=== PATIENT | female | born 1990 | race Caucasian/White ===

== ENCOUNTER 2018-11-16 10:31 | Inpatient (IN) | payer OTHER ==
[2018-11-17 13:25] LABS: ADD MAN DIFF? NO
[2018-11-17 13:34] LABS: BASOPHILS % 0.3 % (0.0-2.0); EOSINOPHILS # 0.1 10^3/ul (0.0-0.5); EOSINOPHILS % 0.8 % (0.0-7.0); HEMATOCRIT 41.6 % (37.0-47.0); HEMOGLOBIN 14.5 g/dl (12.0-16.0); LYMPHOCYTES # 2.5 10^3/ul (0.8-2.9); LYMPHOCYTES % 27.7 % (15.0-51.0); MEAN CORPUSCULAR HEMOGLOBIN 31.9 pg (29.0-33.0); MEAN CORPUSCULAR HGB CONC 34.9 g/dl (32.0-37.0); MEAN CORPUSCULAR VOLUME 91.6 fl (82.0-101.0); MEAN PLATELET VOLUME 12.9 fl (7.4-10.4); MONOCYTE # 0.5 10^3/ul (0.3-0.9); MONOCYTES % 5.5 % (0.0-11.0); NEUTROPHILS % 65.4 % (39.0-77.0); PLATELET COUNT 142 10^3/UL (140-415); RED BLOOD COUNT 4.54 10^6/ul (4.20-5.40); RED CELL DISTRIBUTION WIDTH 12.2 % (11.5-14.5)
[2018-11-17 13:34] LABS: WHITE BLOOD COUNT 9.2 10^3/ul (4.8-10.8)
[2018-11-17 13:39] LABS: INR 0.89; PROTIME 12.2 Sec (11.9-14.9)
[2018-11-17 13:40] LABS: PARTIAL THROMBOPLASTIN TIME 23.6 Sec (23.0-35.0)
[2018-11-17] MEDS: LACTATED RINGER'S 1,000 ML IV ×3 (13:42→21:17)
[2018-11-17] MEDS ORDERED: IBUPROFEN 600 MG TAB PO (15:00)
[2018-11-17] MEDS ORDERED: LIDOCAINE 1% (MPF) 30 ML INJ INJ (15:00)
[2018-11-17] MEDS ORDERED: BUTORPHANOL 2 MG INJ IV (15:00)
[2018-11-17] MEDS ORDERED: CARBOPROST 250 MCG INJ IM (15:00)
[2018-11-17] MEDS ORDERED: MISOPROSTOL 200 MCG TAB PR (15:00)
[2018-11-17] MEDS ORDERED: METHYLERGONOVINE 0.2 MG INJ IM (15:00)
[2018-11-17] MEDS ORDERED: OXYTOCIN 30 UNITS/LR 500 ML IV (15:00)
[2018-11-17 15:45] LABS: RAPID PLASMA REAGIN NONREACTIVE (NR)
[2018-11-17] MEDS ORDERED: AMPICILLIN 2 GM/NS (PMX) 100 ML (19:26)
[2018-11-17] MEDS: AMPICILLIN 2 GM/NS (PMX) 100 ML IVPB (19:30)
[2018-11-17] MEDS ORDERED: NALOXONE (0.4 MG/ML) INJ IV (20:00)
[2018-11-17] MEDS ORDERED: FENTAnyl 2MCG/ML-ROPIV 0.2% 100 ML BAG EPI (20:00)
[2018-11-17] MEDS ORDERED: DIPHENHYDRAMINE 50 MG INJ IV (20:00)
[2018-11-17] MEDS: ONDANSETRON 4 MG INJ IV (20:23)
[2018-11-17] MEDS: AMPICILLIN 1 GM/NS (PMX) 50 ML IVPB (22:54)
[2018-11-18] MEDS: MINERAL OIL LIGHT 10 ML VIAL TOP (02:39)
[2018-11-18] MEDS: OXYTOCIN 30 UNITS/LR 500 ML IV ×3 (03:05→03:07)
[2018-11-18] MEDS: LACTATED RINGER'S 1,000 ML IV* ×3 (03:07→19:07)
[2018-11-18] MEDS: AMPICILLIN 1 GM/NS (PMX) 50 ML IVPB (03:09)
[2018-11-18] MEDS ORDERED: MAGNESIUM HYDROXIDE 30ML CUP PO (03:30)
[2018-11-18] MEDS ORDERED: OXYTOCIN 30 UNITS/LR 500 ML IV (03:30)
[2018-11-18] MEDS ORDERED: CARBOPROST 250 MCG INJ IM (03:30)
[2018-11-18] MEDS ORDERED: DIBUCAINE 1% 30 GM OINT TOP (03:30)
[2018-11-18] MEDS ORDERED: IBUPROFEN 600 MG TAB PO (03:30)
[2018-11-18] MEDS ORDERED: METHYLERGONOVINE 0.2 MG INJ IM (03:30)
[2018-11-18] MEDS ORDERED: MISOPROSTOL 200 MCG TAB PR (03:30)
[2018-11-18] MEDS ORDERED: ONDANSETRON 4 MG INJ IV (03:30)
[2018-11-18] MEDS ORDERED: ACETAMINOPHEN 325 MG TAB PO ×2 (03:30)
[2018-11-18] MEDS: WITCH HAZEL/GLYCERIN PAD PR (06:52)
[2018-11-18] MEDS: BENZOCAINE 20% 56 ML SPRAY TOP (06:52)
[2018-11-18] MEDS: LANOLIN HPA 1 PKT TOP (20:32)
[2018-11-19] MEDS: LACTATED RINGER'S 1,000 ML IV* ×3 (03:07→21:31)
[2018-11-19] MEDS: LANOLIN HPA 1 PKT TOP (08:06)
[2018-11-19] MEDS: SENNA/DOCUSATE NA (8.6MG/50MG) TAB PO (08:06)
[2018-11-19] MEDS: WITCH HAZEL/GLYCERIN PAD PR (08:06)
[2018-11-19] MEDS: BENZOCAINE 20% 56 ML SPRAY TOP (08:06)
[2018-11-19 08:19] LABS: ADD MAN DIFF? NO
[2018-11-19 08:20] LABS: BASOPHIL # 0.1 10^3/ul (0.0-0.1); BASOPHILS % 0.5 % (0.0-2.0); EOSINOPHILS # 0.3 10^3/ul (0.0-0.5); EOSINOPHILS % 2.1 % (0.0-7.0); HEMATOCRIT 34.4 % (37.0-47.0); HEMOGLOBIN 11.8 g/dl (12.0-16.0); LYMPHOCYTES # 2.3 10^3/ul (0.8-2.9); LYMPHOCYTES % 18.3 % (15.0-51.0); MEAN CORPUSCULAR HGB CONC 34.3 g/dl (32.0-37.0); MEAN CORPUSCULAR VOLUME 93.2 fl (82.0-101.0); MEAN PLATELET VOLUME 12.4 fl (7.4-10.4); MONOCYTE # 0.8 10^3/ul (0.3-0.9); MONOCYTES % 6.2 % (0.0-11.0); NEUTROPHIL # 9.2 10^3/ul (1.6-7.5); NEUTROPHILS % 72.3 % (39.0-77.0); PLATELET COUNT 114 10^3/UL (140-415); RED BLOOD COUNT 3.69 10^6/ul (4.20-5.40); RED CELL DISTRIBUTION WIDTH 12.2 % (11.5-14.5)
[2018-11-19 08:20] LABS: WHITE BLOOD COUNT 12.6 10^3/ul (4.8-10.8)
[2018-11-20] MEDS: LACTATED RINGER'S 1,000 ML IV* ×2 (03:07→11:07)
[2018-11-20] MEDS: WITCH HAZEL/GLYCERIN PAD PR (12:01)
[2018-11-20] MEDS: LANOLIN HPA 1 PKT TOP (12:01)
== END 2018-11-20 16:27 | disposition home or self-care (01) | DRG 807 ==
LOC: OBT 10:31 → PP1 11-18 05:09 → L-D 10:32 → OBT 12:30 → L-D 12:30 → PP1 14:22
PROVIDERS: Obstetrics & Gynecology
PROC: 10E0XZZ Delivery of Products of Conception, External Approach (ICD-10-PCS; principal; 2018-11-18)
PROC: 0W8NXZZ Division of Female Perineum, External Approach (ICD-10-PCS; 2018-11-18)
DX: O40.3XX0 Polyhydramnios, third trimester, not applicable or unspecified (principal); O69.1XX0 Labor and delivery complicated by cord around neck, with compression, not applicable or unspecified; O77.0 Labor and delivery complicated by meconium in amniotic fluid; O76 Abnormality in fetal heart rate and rhythm complicating labor and delivery; Z3A.38 38 weeks gestation of pregnancy; Z37.0 Single live birth
CPT/HCPCS: 62322; 76815; 76818; 85025; 85610; 85730; 86592; 86850; 86900; 86901; 99464

== ENCOUNTER 2019-01-22 14:56 | Emergency (ER) | payer OTHER | END 2019-01-22 17:37 | disposition home or self-care (01) | LOC: E/R 17:37 | DX: S50.311A Abrasion of right elbow, initial encounter (principal); W01.10XA Fall on same level from slipping, tripping and stumbling with subsequent striking against unspecified object, initial encounter; Y92.9 Unspecified place or not applicable | CPT/HCPCS: 99283 ==